=== PATIENT | female | born 1975 | race Caucasian/White ===

== ENCOUNTER 2017-11-18 23:19 | Outpatient (CLI) | payer MEDICAID ==
[~2017-11-18] VITALS: Ht 177.8 cm; Wt 145.9 kg
[~2017-11-18 23:19] MED LIST: NONE PER PT
[2017-11-18 23:30] VITALS: BP 134/60
[2017-11-19 00:02] LABS: MICROSCOPIC INDICATED
[2017-11-19 00:11] LABS: AMPHETAMINE SCREEN, URINE Negative (Negative); BARBITURATE SCREEN, URINE Negative (Negative); BENZODIAZEPINE SCREEN, URINE Negative (Negative); CANNABINOID SCREEN, URINE Negative (Negative); COCAINE SCREEN, URINE Negative (Negative); METHADONE SCREEN, URINE Negative (Negative); OPIATE SCREEN, URINE Negative (Negative)
[2017-11-19] MEDS ORDERED: OXYcodone/APAP 5/325MG TABLET ONE (01:05)
[2017-11-19] MEDS ORDERED: OXYcodone/APAP 5/325MG TABLET PO ONE (01:30)
== END 2017-11-19 01:18 | disposition home or self-care (01) ==
LOC: LDOP 23:19
PROVIDERS: ATTEND Student in an Organized Health Care Education/Training Program
DX: O26.893 Other specified pregnancy related conditions, third trimester (principal); Z3A.30 30 weeks gestation of pregnancy
CPT/HCPCS: 59025; 76819; 80307; 81001; 87086; 99211; G0463

== ENCOUNTER 2018-01-06 05:22 | Inpatient (IN) | payer MEDICAID ==
[~2018-01-06] VITALS: Ht 177.8 cm; Wt 142.0 kg
[2018-01-06] MEDS ORDERED: OXYTOCIN 30U/ 0.9% NaCL 500ML 500 ML IV SCH (05:24)
[2018-01-06] MEDS ORDERED: LACTATED RINGERS 1,000 ML IV SCH ×2 (05:24→05:30)
[2018-01-06] MEDS ORDERED: LACTATED RINGERS 1,000 ML IVBOLUS ONE (05:30)
[2018-01-06] MEDS ORDERED: SODIUM CITRATE/CITRIC ACID 30 ML UDC PO ONE (05:30)
[2018-01-06] MEDS ORDERED: METOCLOPRAMIDE 5 MG/ML, 2ML IV ONE (05:30)
[2018-01-06] MEDS ORDERED: OXYTOCIN 30U/ 0.9% NaCL 500ML 500 ML ONE (05:32)
[2018-01-06] MEDS ORDERED: SODIUM CITRATE/CITRIC ACID 30 ML UDC ONE (05:32)
[2018-01-06] MEDS ORDERED: NEWBORN KIT ONE (05:32)
[2018-01-06] MEDS ORDERED: METOCLOPRAMIDE 5 MG/ML, 2ML ONE (05:32)
[2018-01-06 05:48] VITALS: BP 134/76
[2018-01-06 05:56] LABS: BASOPHILS # (AUTO) 0.04 x10^3/uL (0-0.1); BASOPHILS % (AUTO) 0 % (0-1); EOSINOPHILS # (AUTO) 0.21 x10^3/uL (0-0.4); EOSINOPHILS % (AUTO) 2 % (1-7); LYMPHOCYTES # (AUTO) 2.19 x10^3/uL (1-3.4); LYMPHOCYTES % (AUTO) 24 % (22-44); MD NO; MEAN CORPUSCULAR HEMOGLOBIN 28.7 pg (27.0-34.8); MEAN CORPUSCULAR HGB CONC 33.8 g/dL (32.4-35.8); MEAN PLATELET VOLUME 9.8 fL (7.4-10.4); MONOCYTES # (AUTO) 0.73 x10^3/uL (0.2-0.8); MONOCYTES % (AUTO) 8 % (2-9); NEUTROPHILS # (AUTO) 6.09 x10^3/uL (1.8-6.8); NEUTROPHILS % (AUTO) 66 % (42-75); PLATELET COUNT 262 x10^3/uL (130-400); RED BLOOD COUNT 4.47 x10^6/uL (3.82-5.3)
[2018-01-06] MEDS ORDERED: morphine SULFATE/PF 0.5 MG/ML, 10ML ONE (07:16)
[2018-01-06] MEDS ORDERED: CEFAZOLIN 1,000 MG ONE ×2 (07:28→12:21)
[2018-01-06] MEDS ORDERED: ONDANSETRON 2MG/ML, 2ML ONE (07:28)
[2018-01-06] MEDS ORDERED: OXYTOCIN 10 UNITS/ML, 1ML ONE (07:28)
[2018-01-06] MEDS ORDERED: PHENYLEPHRINE 10 MG/ML ONE (07:28)
[2018-01-06] MEDS ORDERED: EPHEDRINE 50 MG/ML, 1ML ONE (07:28)
[2018-01-06] MEDS ORDERED: WATER-INJECTION,STERILE 10 ML IV ONE (07:28)
[2018-01-06] MEDS ORDERED: morphine SULFATE 10 MG/ML, 1ML IVPush PRN (07:30)
[2018-01-06] MEDS: OXYTOCIN 30U/ 0.9% NaCL 500ML 500 ML IV SCH ×2 (07:30→17:02)
[2018-01-06] MEDS ORDERED: GLYCERIN ADULT SUPP PR PRN (07:30)
[2018-01-06] MEDS ORDERED: BISACODYL 10 MG SUPP PR PRN (07:30)
[2018-01-06] MEDS ORDERED: SIMETHICONE 80 MG CHEW TAB PO PRN (07:30)
[2018-01-06] MEDS ORDERED: CARBOPROST TROMETHAMINE 250 MCG/ML, 1ML IM PRN (07:30)
[2018-01-06] MEDS ORDERED: ACETAMINOPHEN 325 MG TABLET PO PRN (07:30)
[2018-01-06] MEDS ORDERED: METOCLOPRAMIDE 5 MG/ML, 2ML IV PRN (07:30)
[2018-01-06] MEDS ORDERED: MISOPROSTOL 200 MCG TABLET PR PRN (07:30)
[2018-01-06] MEDS ORDERED: ONDANSETRON 2MG/ML, 2ML IV PRN (07:30)
[2018-01-06] MEDS: LACTATED RINGERS 1,000 ML IV SCH ×5 (07:30→23:30)
[2018-01-06 07:47] LABS: ALANINE AMINOTRANSFERASE 17 U/L (12-78); ALBUMIN 2.5 g/dL (3.4-5.0); ANION GAP 10 mmol/L (5-15); BILIRUBIN, DIRECT 0.2 mg/dL (0.1-0.2); CALCIUM 8.1 mg/dL (8.5-10.1); CHLORIDE 110 mmol/L (98-107); CREATININE 0.49 mg/dL (0.55-1.02)
[2018-01-06 07:48] LABS: ALKALINE PHOSPHATASE 90 U/L (45-117); BILIRUBIN,TOTAL 0.6 mg/dL (0.2-1.0); TOTAL PROTEIN 6.3 g/dL (6.4-8.2)
[2018-01-06] MEDS ORDERED: MIDAZOLAM 1 MG/ML, 2ML ONE (07:49)
[2018-01-06 08:52] LABS: MICROSCOPIC NOT IND
[2018-01-06] MEDS: PRENATAL VIT/IRON/FA 1 EACH TABLET PO SCH (09:00)
[2018-01-06 09:04] LABS: AMPHETAMINE SCREEN, URINE Negative (Negative); BARBITURATE SCREEN, URINE Negative (Negative); BENZODIAZEPINE SCREEN, URINE Negative (Negative); CANNABINOID SCREEN, URINE Negative (Negative); COCAINE SCREEN, URINE Negative (Negative); METHADONE SCREEN, URINE Negative (Negative); OPIATE SCREEN, URINE Negative (Negative)
[2018-01-06] MEDS ORDERED: OXYcodone/APAP 5/325MG TABLET ONE (10:21)
[2018-01-06] MEDS: OXYcodone/APAP 5/325MG TABLET PO PRN ×2 (10:26→22:50)
[2018-01-06 11:50] VITALS: BP 115/79
[2018-01-06] MEDS: KETOROLAC 30 MG/1 ML IV SCH ×2 (12:30→18:46)
[2018-01-06] MEDS ORDERED: HYDROmorphone 2 MG/ML, 1ML ONE (12:32)
[2018-01-06] MEDS ORDERED: HYDROmorphone 1 MG/ML, 1ML IV ONE (13:00)
[2018-01-06] MEDS ORDERED: NALOXONE 0.4 MG/ML, 1ML IV PRN ×2 (14:00)
[2018-01-06] MEDS ORDERED: DIPHENHYDRAMINE 50 MG/ML, 1ML IV PRN (14:00)
[2018-01-06 16:35] VITALS: BP 121/81
[2018-01-06] MEDS: NICOTINE 7 MG/24 HR PATCH.TD24 TD SCH (17:35)
[2018-01-06 17:45] LABS: MEAN CORPUSCULAR HEMOGLOBIN 28.9 pg (27.0-34.8); MEAN CORPUSCULAR VOLUME 85.1 fL (80-100); MEAN PLATELET VOLUME 9.6 fL (7.4-10.4); PLATELET COUNT 217 x10^3/uL (130-400); RED BLOOD COUNT 3.42 x10^6/uL (3.82-5.3)
[2018-01-06 18:06] LABS: BASOPHILS # (AUTO) 0.03 x10^3/uL (0-0.1); BASOPHILS % (AUTO) 0 % (0-1); EOSINOPHILS # (AUTO) 0.04 x10^3/uL (0-0.4); EOSINOPHILS % (AUTO) 0 % (1-7); LYMPHOCYTES # (AUTO) 1.83 x10^3/uL (1-3.4); LYMPHOCYTES % (AUTO) 11 % (22-44); MD SCAN; MONOCYTES # (AUTO) 0.67 x10^3/uL (0.2-0.8); MONOCYTES % (AUTO) 4 % (2-9); NEUTROPHILS # (AUTO) 13.53 x10^3/uL (1.8-6.8); NEUTROPHILS % (AUTO) 84 % (42-75)
[2018-01-06 20:15] VITALS: BP 121/68
[2018-01-06] MEDS: DOCUSATE 100 MG CAPSULE PO PRN (22:50)
[2018-01-06 23:57] VITALS: BP 110/71
[2018-01-07] MEDS: KETOROLAC 30 MG/1 ML IV SCH (02:07)
[2018-01-07] MEDS: OXYcodone/APAP 5/325MG TABLET PO PRN ×6 (02:14→23:49)
[2018-01-07] MEDS: IBUPROFEN 600 MG TABLET PO PRN ×4 (02:14→19:48)
[2018-01-07 04:03] VITALS: BP 115/72
[2018-01-07] MEDS: DOCUSATE 100 MG CAPSULE PO PRN ×2 (07:44→19:48)
[2018-01-07] MEDS: PRENATAL VIT/IRON/FA 1 EACH TABLET PO SCH (07:44)
[2018-01-07] MEDS ORDERED: CALCIUM CARBONATE 500 MG TAB.CHEW ONE (09:08)
[2018-01-07 09:09] VITALS: BP 112/67
[2018-01-07] MEDS: CALCIUM CARBONATE 500 MG TAB.CHEW PO PRN ×3 (09:10→20:43)
[2018-01-07] MEDS: NICOTINE 7 MG/24 HR PATCH.TD24 TD SCH (13:16)
[2018-01-07 19:45] VITALS: BP 114/72
[2018-01-07 20:55] VITALS: BP 110/72
[2018-01-08] MEDS: OXYcodone/APAP 5/325MG TABLET PO PRN ×2 (04:09→08:53)
[2018-01-08] MEDS: IBUPROFEN 600 MG TABLET PO PRN ×2 (04:09→10:28)
[2018-01-08] MEDS ORDERED: OMEPRAZOLE 20 MG CAPSULE.DR PO SCH (07:30)
[2018-01-08] MEDS: DOCUSATE 100 MG CAPSULE PO PRN (07:34)
[2018-01-08] MEDS: PRENATAL VIT/IRON/FA 1 EACH TABLET PO SCH (07:34)
[2018-01-08 08:02] VITALS: BP 143/83
[2018-01-08 10:22] VITALS: BP 137/82
[2018-01-08] MEDS: CALCIUM CARBONATE 500 MG TAB.CHEW PO PRN (10:29)
[2018-01-08] MEDS ORDERED: OXYcodone/APAP 10/325MG TABLET PO PRN (10:30)
[2018-01-08 11:44] VITALS: BP 124/83
[2018-01-08] MEDS ORDERED: IBUP-1222 PO (14:20)
[2018-01-08] MEDS ORDERED: OXYC-302 PO (14:21)
[2018-01-08] MEDS ORDERED: PREN1TAB98 PO (14:23)
== END 2018-01-08 15:10 | disposition home or self-care (01) | DRG 765 ==
LOC: LDIP 05:22 → 2NW 11:51
PROVIDERS: ADMIT Student in an Organized Health Care Education/Training Program; ATTEND Student in an Organized Health Care Education/Training Program
PROC: 10D00Z1 Extraction of Products of Conception, Low, Open Approach (ICD-10-PCS; principal; 2018-01-06)
PROC: 0UB70ZZ Excision of Bilateral Fallopian Tubes, Open Approach (ICD-10-PCS; 2018-01-06)
DX: O32.1XX0 Maternal care for breech presentation, not applicable or unspecified (principal); Z68.41 Body mass index [BMI] 40.0-44.9, adult; O40.3XX0 Polyhydramnios, third trimester, not applicable or unspecified; O09.523 Supervision of elderly multigravida, third trimester; Z37.0 Single live birth; O24.429 Gestational diabetes mellitus in childbirth, unspecified control; O99.214 Obesity complicating childbirth; E66.01 Morbid (severe) obesity due to excess calories; O13.4 Gestational [pregnancy-induced] hypertension without significant proteinuria, complicating childbirth; Z30.2 Encounter for sterilization; Z3A.37 37 weeks gestation of pregnancy; Z83.3 Family history of diabetes mellitus; O99.334 Smoking (tobacco) complicating childbirth; F17.210 Nicotine dependence, cigarettes, uncomplicated; E78.00 Pure hypercholesterolemia, unspecified; O99.284 Endocrine, nutritional and metabolic diseases complicating childbirth
CPT/HCPCS: 36415; 80053; 80307; 81003; 82248; 82570; 82803; 84156; 84550; 85025; 86850; 86900; 88302; J0690; J1170; J1885; J2250; J2274; J2405; J2370; J2590; J2765; J7120